=== PATIENT | female | born 1945 | race Caucasian/White ===

== ENCOUNTER 2017-10-06 12:53 | Outpatient (CLI) | payer MEDICARE, OTHER ==
--- NOTE | 2017-10-07 14:56 | DEXA Report ---
DEXA: 10/06/2017 CLINICAL INDICATION: Postmenopausal. TECHNIQUE: Dual energy x-ray absorptiometry (DXA) was performed on a [employer] system. Regions measured are the AP spine, femoral neck, and, if needed, forearm. COMPARISON: None. In accordance with the International Society for Clinical Densitometry (ISCD) guidelines, data from previous exams may be reanalyzed using current recommendations and techniques. This is done to allow a more accurate basis for comparison with the current study. FINDINGS The data for the lumbar spine is as follows: REGION BMD (g/cm/cm) T-SCORE Z-SCORE L1 1.222 0.8 1.3 L2 1.252 0.4 1.0 L3 1.320 1.0 1.5 L4 1.261 0.5 1.1 TOTAL 1.266 0.7 1.3 NOTE: All evaluable vertebrae are used for classification. The data for the hip is as follows: REGION BMD (g/cm/cm) T-SCORE Z-SCORE Neck 0.998 -0.3 0.7 TOTAL 1.067 0.5 1.2 NOTE: The femoral neck or total proximal femur, whichever is lowest, is used for classification. IMPRESSION THE WHO CLASSIFICATION BASED ON THE INTERNATIONAL REFERENCE STANDARD IS NORMAL. THE FRACTURE RISK IS INCREASED. RECOMMENDATION: Patients with diagnosis of osteoporosis or osteopenia should have regular bone mineral density assessment. For those eligible for Medicare, routine testing is allowed once every 2 years. Testing frequency can be increased for patients who have rapidly progressing disease or for those who are receiving medical therapy to restore bone mass. COMMENT: World Health Organization (WHO) definitions for osteoporosis and osteopenia: NORMAL BMD: T-score at 1.0 or higher, fracture risk is low. OSTEOPENIA BMD: T-score between 1.0 and -2.5, fracture risk is increased. OSTEOPOROSIS BMD: T-score at 2.5 or lower, fracture risk high. National Osteoporosis Foundation recommends: 1. Obtain adequate dietary calcium (at least 1200 mg per day) and vitamin D (400-800 international units per day). 2. Participate, as appropriate, in regular weightbearing and muscle-strengthening exercise. 3. Avoid tobacco use and reduce alcohol and caffeine intake. 4. For more detailed information see the website at www.NOF.org. TD: 10/06/2017 18:24
== END 2017-10-06 12:54 | disposition home or self-care (01) ==
LOC: DI 12:53
PROVIDERS: ATTEND Physician Assistant
DX: Z13.820 Encounter for screening for osteoporosis (principal); N95.8 Other specified menopausal and perimenopausal disorders
CPT/HCPCS: 77080

== ENCOUNTER 2018-03-01 11:42 | Outpatient (CLI) | payer MEDICARE, OTHER ==
--- NOTE | 2018-03-14 11:29 | Mammography Report ---
Procedure Date: 03/01/2018 Accession Number: [id number] / [id number] Procedure: MGN - Screening Mammo Dig w/Implants CPT Code: FULL RESULT: EXAM: Screening Mammo Dig w/Implants DATE: 03/01/2018 12:13 PM CLINICAL HISTORY: 72-year-old female with history of right breast cancer status post surgery, radiation, chemotherapy. TECHNIQUE: Bilateral CC and MLO views were obtained. Bilateral CC and MLO implant displaced views were also obtained. COMPARISON: None FINDINGS: The breasts demonstrate diffuse fatty replacement bilaterally. There are bilateral breast implants, saline. Postsurgical changes are seen in the right breast. Typically benign coarse calcifications are noted. No suspicious masses, clustered microcalcifications, or regions of architectural distortion are identified. IMPRESSION: Benign findings RECOMMENDATION: Routine annual screening unless otherwise clinically indicated. BIRADS CATEGORY 2: Benign findings STANDARD QUALIFYING STATEMENTS: 1. This examination was reviewed with the aid of Computer-Aided Detection (CAD). 2. A negative or benign imaging report should not delay biopsy if clinically suspicious findings are present. Consider surgical consultation if warrented. More than 5% of cancers are not identified by imaging. 3. Dense breasts may obscure an underlying neoplasm.
== END 2018-03-01 11:43 | disposition home or self-care (01) ==
LOC: DI.N 11:42
PROVIDERS: ATTEND Physician Assistant
DX: Z12.31 Encounter for screening mammogram for malignant neoplasm of breast (principal); Z85.3 Personal history of malignant neoplasm of breast; Z98.82 Breast implant status
CPT/HCPCS: 77067

== ENCOUNTER 2018-10-13 15:46 | Emergency (ER) | payer MEDICARE, OTHER ==
[2018-10-13] MEDS ORDERED: SODIUM CHLORIDE 0.9% 1,000 ML IV STA (16:13)
[2018-10-13 17:33] LABS: BILIRUBIN,URINE NEGATIVE (NEGATIVE); GLUCOSE, URINE (UA) NEGATIVE (NEGATIVE); KETONES,URINE (UA) NEGATIVE (NEGATIVE); LEUKOCYTE ESTERASE, URINE TRACE (NEGATIVE); NITRITE,URINE NEGATIVE (NEGATIVE); OCCULT BLOOD,URINE NEGATIVE (NEGATIVE); PROTEIN,URINE 30 mg/dL (NEGATIVE); UROBILINOGEN,URINE 0.2 (NORMAL) E.U./dL (NORMAL)
[2018-10-13 17:37] LABS: CLARITY,URINE CLEAR (CLEAR)
[2018-10-13 17:38] LABS: BACTERIA,URINE None Seen /HPF (None Seen); RBC,URINE None Seen /HPF (0-5); SQUAMOUS EPITHELIAL CELL,UR MOD Squamous (<= Few)
[2018-10-13 18:45] LABS: BASOPHILS # (AUTO) 0.1 10^3/uL (0.0-0.1); BASOPHILS % (AUTO) 0.6 %; EOSINOPHILS # (AUTO) 0.1 10^3/uL (0.0-0.7); HGB - HEMOGLOBIN 9.4 g/dL (12.0-16.0); LYMPHOCYTES # (AUTO) 1.7 10^3/uL (1.5-3.5); LYMPHOCYTES % (AUTO) 13.8 %; MEAN CORPUSCULAR HEMOGLOBIN 28.1 pg (27.0-31.0); MEAN CORPUSCULAR HGB CONC 32.6 g/dL (32.0-36.0); MEAN CORPUSCULAR VOLUME 86.1 fL (81.0-99.0); MEAN PLATELET VOLUME 6.6 fL (7.9-10.8); MONOCYTES # (AUTO) 0.8 10^3/uL (0.0-1.0); MONOCYTES % (AUTO) 6.8 %; NEUTROPHILS # (AUTO) 9.6 10^3/uL (1.5-6.6); NEUTROPHILS % (AUTO) 77.8 %; PLT - PLATELET COUNT 411 10^3/uL (130-450); RED BLOOD COUNT 3.34 10^6/uL (4.20-5.40); RED CELL DISTRIBUTION WIDTH 14.4 % (12.0-15.0); WHITE BLOOD COUNT 12.3 x10^3/uL (4.8-10.8)
[2018-10-13 19:05] LABS: ALBUMIN 2.2 g/dL (3.2-5.5); ALBUMIN/GLOBULIN RATIO 0.6 (1.0-2.2); BILIRUBIN,TOTAL 0.5 mg/dL (0.2-1.0); CALCIUM 7.4 mg/dL (8.5-10.3); CREATININE 0.5 mg/dL (0.4-1.0); TOTAL PROTEIN 6.2 g/dL (6.7-8.2)
[2018-10-13] MEDS ORDERED: POTASSIUM BICARB 25 MEQ TABLET PO STA (19:37)
[2018-10-13] MEDS ORDERED: IOPAMIDOL-300 100 ML VIAL ONE (20:04)
[2018-10-13] MEDS ORDERED: IOPAMIDOL-300 100 ML VIAL IVP ONE (20:36)
--- NOTE | 2018-10-13 20:39 | ED Physician Documentation ---
History of Present Illness - Stated complaint Stated Complaint: FEVER/DIARRHEA - Chief complaint Chief Complaint: General - History obtained from History obtained from: Patient - History of Present Illness Timing: How many weeks ago (3) Pain level max: 4 Pain level now: 3 Improved by: nothing Worsened by: eating - Additonal information Additional information: 73-year-old female is 3 weeks status post a total abdominal hysterectomy. She states that she has had diarrhea since the hysterectomy and this is been an ongoing issue. Is also having body aches and fevers. Has seen her surgeon, but no tests run. No vomiting. Review of Systems Constitutional: denies: Fever, Chills Nose: denies: Rhinorrhea / runny nose, Congestion Throat: denies: Sore throat Respiratory: denies: Cough : denies: Dysuria Skin: denies: Rash Musculoskeletal: denies: Neck pain, Back pain Neurologic: denies: Headache PD PAST MEDICAL HISTORY - Past Medical History Past Medical History: Yes Other Past Medical History: uterine CA, colon CA, breast CA - Past Surgical History Past Surgical History: Yes General: Cholecystectomy, Appendectomy - Allergies Allergies/Adverse Reactions: Allergies Allergy/AdvReac Type Severity Reaction Status Date / Time No Known Drug Allergies Allergy Verified 10/13/18 15:52 - Social History Does the pt smoke?: No Smoking Status: Never smoker Does the pt drink ETOH?: No Does the pt have substance abuse?: No - Immunizations Immunizations are current?: Yes PD ED PE NORMAL - Vitals Vital signs reviewed: Yes - General General: Alert and oriented X 3, No acute distress - HEENT HEENT: Moist mucous membranes - Neck Neck: Supple, no meningeal sign - Cardiac Cardiac: RRR, Strong equal pulses - Respiratory Respiratory: No respiratory distress, Clear bilaterally - Abdomen Abdomen: Soft, Non tender, Non distended, Other (Mild dehiscence of her surgical site. No drainage) - Back Back: No spinal TTP - Derm Derm: Warm and dry - Neuro Neuro: Alert and oriented X 3 - Psych Psych: Normal mood, Normal affect Results - Vitals Vitals: Vital Signs - 24 hr 10/13/18 10/13/18 10/13/18 15:53 17:20 18:52 Temperature 37.9 C H Heart Rate 122 H 98 108 H Respiratory 18 16 15 Rate Blood Pressure 141/86 H 141/84 H 147/87 H O2 Saturation 94 95 97 03/08/19 20:55 Temperature 37.4 C Heart Rate 104 H Respiratory 16 Rate Blood Pressure 149/87 H O2 Saturation 98 Oxygen O2 Source Room air - Labs Labs: Laboratory Tests 10/13/18 10/13/18 10/13/18 17:29 18:36 18:40 WBC 12.3 H RBC 3.34 L Hgb 9.4 L Hct 28.8 L MCV 86.1 MCH 28.1 MCHC 32.6 RDW 14.4 Plt Count 411 MPV 6.6 L Neut # (Auto) 9.6 H Lymph # (Auto) 1.7 Haakon # (Auto) 0.8 Eos # (Auto) 0.1 Baso # (Auto) 0.1 Absolute Nucleated RBC 0.00 Nucleated RBC % 0.0 Sodium 137 Potassium 2.6 L Chloride 98 L Carbon Dioxide 27 Anion Gap 12.0 BUN 11 Creatinine 0.5 Estimated GFR (MDRD) 121 Glucose 153 H Calcium 7.4 L Total Bilirubin 0.5 AST 25 ALT 22 Alkaline Phosphatase 76 Total Protein 6.2 L Albumin 2.2 L Globulin 4.0 Albumin/Globulin Ratio 0.6 L Lipase 26 Urine Color YELLOW Urine Clarity CLEAR Urine pH 6.0 Ur Specific [place] 1.025 Urine Protein 30 H Urine Glucose (UA) NEGATIVE Urine Ketones NEGATIVE Urine Occult Blood NEGATIVE Urine Nitrite NEGATIVE Urine Bilirubin NEGATIVE Urine Urobilinogen 0.2 (NORMAL) Ur Leukocyte Esterase TRACE H Urine RBC None Seen Urine WBC 0-3 Ur Squamous Epith Cells MOD Squamous H Urine Bacteria None Seen Ur Microscopic Review INDICATED Urine Culture Comments NOT INDICATED - Rads (name of study) CT abdomen pelvis Radiology: Prelim report reviewed, EMP read contemporaneously, See rad report (Small volume scattered free fluid in the abdomen and pelvis. 2. Relatively small approximately 3 x 5 x 22 cm left retroperitoneal fluid collection from the mid abdomen through the mid pelvis as described above which is of uncertain significance, possibly a lymphocele. 3. Minimal fluid and gas at the infraumbilical midline laparotomy scar. ) PD MEDICAL DECISION MAKING - ED course Complexity details: reviewed results, re-evaluated patient, considered differential, d/w patient ED course: 73-year-old female with diarrhea for the past 3 weeks. No diarrhea while in the emergency department for over 6 hours. No acute findings on CT. She was hypokalemic and this was replaced. Also given IV fluids. Feels better. We will have her follow-up with her doctor for stool testing. Abdomen is soft, nontender nondistended. Patient is well-appearing, nontoxic. Patient counseled regarding signs and symptoms for which I believe and urgent re-evaluation would be necessary. Patient with good understanding of and agreement to plan and is comfortable going home at this time This document was made in part using voice recognition software. While efforts are made to proofread this document, sound alike and grammatical errors may occur. Departure - Departure Disposition: 01 Home, Self Care Clinical Impression: Hypokalemia Diarrhea Qualifiers: Diarrhea type: unspecified type Qualified Code(s): R19.7 - Diarrhea, unspecified Condition: Good Instructions: ED Diet Vomiting Diarrhea, ED Potassium Deficiency Follow-Up: Freedom Lou MD [Primary Care Provider] - Within 3 Days Comments: Follow-up with Dr. Lou for a repeat potassium and a stool culture. Return if you worsen. Discharge Date/Time: 10/13/18 21:29
[2018-10-13 20:56] VITALS: BP 149/87
--- NOTE | 2018-10-13 21:04 | CT Report ---
Reason: abd pain s/p hysterectomy 3 weeks ago Procedure Date: 10/13/2018 Accession Number: [id number] / [id number] Procedure: CT - Abdomen/Pelvis W CPT Code: FULL RESULT: EXAM: CT ABDOMEN AND PELVIS EXAM DATE: 10/13/2018 08:34 PM. CLINICAL HISTORY: Abd pain s/p hysterectomy 3 weeks ago for uterine cancer. COMPARISONS: None. TECHNIQUE: Routine helical CT imaging was performed through the abdomen and pelvis. IV contrast: 100 ML ISOVUE 300. Enteric contrast: No. Reconstructions: Coronal and sagittal. In accordance with CT protocol optimization, one or more of the following dose reduction techniques were utilized for this exam: automated exposure control, adjustment of mA and/or KV based on patient size, or use of iterative reconstructive technique. FINDINGS: Lung Bases: Unremarkable. Liver: Tiny hypodensity in the lateral left lobe adjacent to the fissure for the ligamentum teres probably representing minimal focal fatty infiltration. Otherwise normal. Gallbladder/Bile Ducts: Gallbladder surgically absent. No ductal dilatation. Spleen: Normal. Pancreas: Normal. Adrenal Glands: Normal. Kidneys: Normal. No masses or hydronephrosis. Peritoneal Cavity/Bowel: Unopacified stomach and small bowel are unremarkable. The appendix is not clearly identified. There is minimal formed stool in the colon. There is a rectal anastomotic staple line. There is no focal pericolonic fat stranding. There is small volume dependent free fluid in the pelvis. There is minimal fluid near the inferior right hepatic lobe and in the upper right paracolic gutter. There is a small amount of fluid in the mid left paracolic gutter. No loculated or rim-enhancing fluid collection is identified. No pneumoperitoneum. Retroperitoneum: No lymphadenopathy. There is an elongated hypodense fluid collection in the left retroperitoneum posterior to the posterior pararenal fascia starting at the level of the mid kidney and extending inferiorly in the extraperitoneal space anterior to the iliac wing and terminating anterior to the external iliac vessels measuring approximately 3 x 5 x 22 cm. Pelvic Organs: Bladder normal in size and contour. There is a small amount of fluid pooling in the anterior vagina. The vaginal cuff is unremarkable. The uterus is surgically absent. No adnexal mass is identified. Vasculature: Minimal aortoiliac atherosclerotic calcification without abnormal dilation. Iliac arteries and veins enhance normally. Bones: Flowing osteophyte formation anteriorly in the lower thoracic spine consistent with diffuse idiopathic skeletal hyperostosis. Mild bilateral L3-L4, moderate bilateral L4-L5 and L5-S1 facet osteoarthritis. Mild degenerative sclerosis of the bilateral sacroiliac joints and the pubic symphysis. Other: Bilateral breast implants. Mild generalized body wall edema. Scattered bubbles of subcutaneous gas in the mid anterior abdominal wall bilaterally suggesting sites of medication injection. Minimal fluid and gas along the immediate infraumbilical portion of the midline laparotomy scar. IMPRESSION: 1. Small volume scattered free fluid in the abdomen and pelvis. 2. Relatively small approximately 3 x 5 x 22 cm left retroperitoneal fluid collection from the mid abdomen through the mid pelvis as described above which is of uncertain significance, possibly a lymphocele. 3. Minimal fluid and gas at the infraumbilical midline laparotomy scar. RADIA
== END 2018-10-13 21:29 | disposition home or self-care (01) ==
LOC: ED 15:46
DX: E87.6 Hypokalemia (principal); R19.7 Diarrhea, unspecified; Z90.710 Acquired absence of both cervix and uterus
CPT/HCPCS: 36415; 74177; 80053; 81001; 83690; 85025; 96360; 96361; 99283; A9270; Q9967; 81003; 87086

== ENCOUNTER 2018-10-21 12:05 | Outpatient (CLI) | payer MEDICARE, OTHER ==
--- NOTE | 2018-10-23 04:57 | XRAY Report ---
Reason: CLAVICLE,FX Procedure Date: 10/21/2018 Accession Number: [id number] / [id number] Procedure: XR - Clavicle RT CPT Code: FULL RESULT: EXAM: RIGHT CLAVICLE RADIOGRAPHY EXAM DATE: 10/21/2018 12:59 PM. CLINICAL HISTORY: Fall, right clavicle pain. COMPARISON: None. TECHNIQUE: 2 views. FINDINGS: Bones: No clavicle fracture seen. Joints: The acromioclavicular and sternoclavicular joints are normally aligned. Minimal degenerative changes in the acromioclavicular joint. Soft Tissues: Normal. No soft tissue swelling. IMPRESSION: Negative right clavicle. RADIA
== END 2018-10-21 12:06 | disposition home or self-care (01) ==
LOC: DI 12:05
PROVIDERS: ATTEND Specialist
DX: M19.011 Primary osteoarthritis, right shoulder (principal)

== ENCOUNTER 2019-05-23 09:24 | Outpatient (CLI) | payer MEDICARE, OTHER | END 2019-05-23 09:25 | disposition home or self-care (01) | LOC: DI.N 09:24 | DX: Z53.9 Procedure and treatment not carried out, unspecified reason (principal) ==

== ENCOUNTER 2019-06-14 13:50 | Outpatient (CLI) | payer MEDICARE, OTHER ==
--- NOTE | 2019-06-14 15:51 | Mammography Report ---
Reason: RT BREAST LUMP, HX BREAST CA Procedure Date: 06/14/2019 Accession Number: [id number] / [id number] Procedure: ABRAM - Diagnostic Dig Bilat CPT Code: Final Report FULL RESULT: EXAM: Diagnostic Dig Bilat DATE: 06/14/2019 3:08 PM CLINICAL HISTORY: Diagnostic examination. Personal history of breast cancer, colon cancer and endometrial cancer. Right breast lumpectomy in 1996. TECHNIQUE: (B) - Bilateral CC and MLO views were obtained. Views were obtained in implant displaced and standard fashion with additional right MLO implant displaced views obtained. COMPARISON: 03/01/2018. PARENCHYMAL PATTERN: (F) - The breast(s) demonstrate(s) diffuse fatty replacement. FINDINGS: Right breast lumpectomy changes demonstrate no concerning interval change, typically benign. Intact-appearing retropectoral type bilateral saline type breast implants are noted. There are no suspicious masses, calcifications, or areas of distortion. IMPRESSION: Benign findings. BI-RADS category 2. RECOMMENDATION: (ANNUAL) - Recommend routine annual screening mammography. BI-RADS CATEGORY: (2) - Benign Findings. STANDARD QUALIFYING STATEMENTS: 1. This examination was not reviewed with the aid of Computer-Aided Detection (CAD). 2. A negative or benign imaging report should not preclude biopsy if clinically suspicious findings are present. 3. Dense breasts may obscure an underlying neoplasm. 4. This examination was reviewed with the aid of 3D breast imaging (tomosynthesis).
== END 2019-06-14 13:51 | disposition home or self-care (01) ==
LOC: DI 13:50
PROVIDERS: ATTEND Internal Medicine
DX: N63.10 Unspecified lump in the right breast, unspecified quadrant (principal); Z85.3 Personal history of malignant neoplasm of breast
CPT/HCPCS: 77066

== ENCOUNTER 2020-01-09 10:24 | Outpatient (CLI) | payer MEDICARE, OTHER ==
--- NOTE | 2020-01-09 12:35 | XRAY Report ---
Reason: INFLAMMAITON OF R MCPJ TYPICAF OA Procedure Date: 01/09/2020 Accession Number: [id number] / [id number] Procedure: XR - Hand 3 View BILAT CPT Code: Final Report FULL RESULT: PROCEDURE: Hand 3 View BILAT INDICATIONS: INFLAMMAITON OF R MCPJ TYPICAF OA TECHNIQUE: 3 views of the hand(s) acquired. COMPARISON: None FINDINGS: Bones: Joint space narrowing, subchondral sclerosis and marginal osteophyte formation is noted in right third MCP joint with underlying subcortical radiolucencies concerning for erosion secondary to inflammatory arthropathy. Osteoarthritic changes are noted involving first through fifth interphalangeal joints as well as first, second and fifth MCP joints. Subtle erosion is also likely present involving radial aspect of right second metacarpal head. Osteophytic changes also seen throughout left wrist and hand joints with features suggestive of erosive osteoarthritis in left second and third distal interphalangeal joints. Subtle radiolucency involving dorsal aspect of left first metacarpal head is seen, concerning for erosion secondary to inflammatory arthropathy. No fractures or dislocations. No suspicious bony lesions. Soft tissues: No suspicious soft tissue calcifications. Soft tissue swelling around third MCP joint is seen. IMPRESSION: 1. Osteoarthritic changes throughout bilateral hands and wrists. Features in left second and fourth distal interphalangeal joints are suggestive of erosive osteoarthritis. No gross fracture or dislocation. 2. There are erosive changes seen involving right third metacarpal head and possibly right second metacarpal head and left first metacarpal head concerning for changes secondary to inflammatory arthropathy. Soft tissue swelling over third metacarpal head. Reviewed by: Martínez Hernandez MD on 01/09/2020 12:34 PM PDT Approved by: Martínez Hernandez MD on 01/09/2020 12:34 PM PDT Station ID: [id number]
== END 2020-01-09 10:25 | disposition home or self-care (01) ==
LOC: DI 10:24
PROVIDERS: ATTEND Internal Medicine
DX: M19.041 Primary osteoarthritis, right hand (principal); M19.042 Primary osteoarthritis, left hand; M19.031 Primary osteoarthritis, right wrist; M19.032 Primary osteoarthritis, left wrist

== ENCOUNTER 2020-08-26 13:00 | Outpatient (CLI) | payer MEDICARE, OTHER ==
--- NOTE | 2020-08-26 16:01 | XRAY Report ---
PROCEDURE: Foot 3 View RT INDICATIONS: M79.671 TECHNIQUE: 3 views of the foot were acquired. COMPARISON: None FINDINGS: Bones: No acute fractures or dislocations. No suspicious bony lesions. There is hallux valgus angul ation of the right great toe with moderate osteoarthritic changes at the first metatarsophalangeal erasto int. There are also prominent plantar calcaneal and retrocalcaneal spurs. Soft tissues: No tibiotalar joint effusion. Achilles tendon appears normal. IMPRESSION: 1. Right foot without acute osseous abnormalities or dislocation. 2. Moderate degenerative changes of the right first metatarsophalangeal joint with hallux valgus angu lation at the first MTP joint. 3. Prominent retrocalcaneal and plantar calcaneal spurring. If there is continued clinical concern for pathology or occult fracture, consider follow-up imaging w ith repeat radiographs in 10-14 days and possible advanced imaging (CT, MRI, bone scan) if symptoms p ersist. Reviewed by: Jean Aguilera MD on 08/26/2020 3:59 PM PST Approved by: Jean Aguilera MD on 08/26/2020 3:59 PM PST Station ID: [id number]
== END 2020-08-26 13:01 | disposition home or self-care (01) ==
LOC: DI.N 13:00
PROVIDERS: ATTEND Physician Assistant
DX: M19.071 Primary osteoarthritis, right ankle and foot (principal); M20.11 Hallux valgus (acquired), right foot; M77.31 Calcaneal spur, right foot

== ENCOUNTER 2021-04-22 13:26 | Outpatient (CLI) | payer MEDICARE, OTHER ==
--- NOTE | 2021-04-23 08:41 | Mammography Report ---
BILATERAL DIGITAL SCREENING MAMMOGRAM 3D/2D WITH AUGMENTATION: 04/22/2021 CLINICAL: Routine screening. Personal history of right breast cancer. Comparison is made to exams dated: 06/14/2019 mammogram and 03/01/2018 mammogram - [facility]. The tissue of both breasts is predominantly fatty. Bilateral breast implants are intact. There are benign post operative findings in the right breast. No significant masses, calcifications, or other findings are seen in either breast. There has been no significant interval change. IMPRESSION: BENIGN There is no mammographic evidence of malignancy. A 1 year screening mammogram is recommended. This exam was interpreted at Station ID: [id number]. NOTE: For mammograms, a report in lay terms will be sent to the patient. Approximately 15% of breast malignancies will not be visualized mammographically. In the management of a palpable breast mass, a negative mammogram must not discourage biopsy of a clinically suspicious lesion. Electronically Signed By: Malvin Sanchez acr/penrad:04/22/2021 19:21:37 ACR BI-RADS Category 2: Benign Finding(s) 3342F PARENCHYMAL PATTERN: (F) - The breast(s) demonstrate(s) diffuse fatty replacement. BI-RADS CATEGORY: (2) - 2 RECOMMENDATION: (ANNUAL) - Recommend routine annual screening mammography. [id number] 1 year screening LATERALITY: (B)
== END 2021-04-22 13:27 | disposition home or self-care (01) ==
LOC: DI 13:26
DX: Z12.31 Encounter for screening mammogram for malignant neoplasm of breast (principal); Z85.3 Personal history of malignant neoplasm of breast

== ENCOUNTER 2022-10-19 14:41 | Outpatient (CLI) | payer MEDICARE, OTHER ==
--- NOTE | 2022-10-21 10:22 | Mammography Report ---
BILATERAL DIGITAL SCREENING MAMMOGRAM 3D/2D WITH AUGMENTATION: 10/19/2022 CLINICAL: Routine screening. Personal history of right breast cancer. Comparison is made to exams dated: 04/22/2021 mammogram, 06/14/2019 mammogram, and [facility] Both breasts are almost entirely fatty (category a/<25% glandular tissue). Bilateral breast implants are intact. There are benign post operative findings in the right breast. No significant masses, calcifications, or other findings are seen in either breast. There has been no significant interval change. IMPRESSION: BENIGN There is no mammographic evidence of malignancy. A 1 year screening mammogram is recommended. This exam was interpreted at Station ID: [id number]. NOTE: For mammograms, a report in lay terms will be sent to the patient. Approximately 15% of breast malignancies will not be visualized mammographically. In the management of a palpable breast mass, a negative mammogram must not discourage biopsy of a clinically suspicious lesion. Electronically Signed By: Issac paz/penrad:10/20/2022 10:41:03 letter sent: No_Letter ACR BI-RADS Category 2: Benign Finding(s) 3342F PARENCHYMAL PATTERN: (F) - The breast(s) demonstrate(s) diffuse fatty replacement. BI-RADS CATEGORY: (2) - 2 Mammogram [id number] 1 year screening LATERALITY: (B)
== END 2022-10-19 14:42 | disposition home or self-care (01) ==
LOC: DI.N 14:41
DX: Z12.31 Encounter for screening mammogram for malignant neoplasm of breast (principal); Z85.3 Personal history of malignant neoplasm of breast; Z98.82 Breast implant status

== ENCOUNTER 2023-03-07 10:10 | Outpatient (CLI) | payer MEDICARE, OTHER ==
--- NOTE | 2023-03-08 08:20 | XRAY Report ---
PROCEDURE: Ankle 3 View LT INDICATIONS: LT ANKLE PX TECHNIQUE: 3 views of the ankle were acquired. COMPARISON: None. FINDINGS: Bones: No fractures or dislocations. Ankle mortise is normally aligned. No suspicious bony lesions . Corticated ossicle adjacent to the medial malleolus is likely sequelae of old injury. Mild osteoart hritic changes in ankle joints. Calcaneal spurring. Soft tissues: No tibiotalar joint effusion. Distal Achilles tendon calcification at the calcaneal i nsertion consistent with enthesopathy. IMPRESSION: 1. No acute bony abnormality. 2. Mild osteoarthritis. 3. Calcaneal spurring. 4. Achilles tendon enthesopathy. Reviewed by: Anna Fair MD on 03/08/2023 8:19 AM PDT Approved by: Anna Fair MD on 03/08/2023 8:19 AM PDT Station ID: [id number]
== END 2023-03-07 10:11 | disposition home or self-care (01) ==
LOC: DI 10:10
PROVIDERS: ATTEND Internal Medicine
DX: M19.072 Primary osteoarthritis, left ankle and foot (principal); M77.32 Calcaneal spur, left foot; M76.892 Other specified enthesopathies of left lower limb, excluding foot

== ENCOUNTER 2023-05-26 07:42 | Day surgery (SDC) | payer MEDICARE, OTHER ==
[2023-05-26] MEDS ORDERED: LACTATED RINGERS 1,000 ML IV ONE (08:00)
[2023-05-26] MEDS ORDERED: PHENYLEPHRINE 2.5% OPHTH 2 ML DROPS ONE (08:01)
[2023-05-26] MEDS ORDERED: KETOROLAC 0.45% OPHTH DROPS ONE (08:01)
[2023-05-26] MEDS ORDERED: PROPARACAINE 0.5% OPHTH DROPS 15 ML ONE (08:02)
[2023-05-26] MEDS ORDERED: CYCLOPENTOLATE 1% OPHTH DROPS 2 ML ONE (08:02)
--- NOTE | 2023-05-26 08:13 | ANESTHESIA ---
Pre-Anesthesia VS, & Labs - Diagnosis L senile combined cataract - Procedure extraction L cataract w IOL Vital Signs: Temp Pulse Resp BP Pulse Ox O2 Flow Rate 36.2 C L 58 L 17 119/69 94 05/26/23 08:00 05/26/23 08:00 05/26/23 08:00 05/26/23 08:00 05/26/23 08:00 Height: 5 ft 8 in - NPO >8 hours - Is Patient ?: No - Lab Results Lab results reviewed: Yes Home Medications and Allergies Levothyroxine [Synthroid] 100 mcg PO QDAC 11/07/18 Omeprazole 10 mg PO DAILY 11/07/18 Zolpidem Tartrate [Edluar] 10 mg ORAL DAILY 11/07/18 Nabumetone 500 mg PO DAILY 12/12/18 Gabapentin 300 mg PO TID 12/26/18 Ferrous Sulfate 325 mg PO DAILY 01/05/19 Dicyclomine [Bentyl] 1 cap PO TID PRN 01/10/19 Allergies/Adverse Reactions: Allergies Allergy/AdvReac Type Severity Reaction Status Date / Time adhesive tape AdvReac Unknown Verified 05/26/23 08:14 Anes History & Medical History - Anesthetic History Anesthesia Complications: reports: No previous complications Family history of Anesthesia Complications: Denies Family history of Malignant Hyperthermia: Denies - Medical History Cardiovascular: reports: None Pulmonary: reports: None Gastrointestinal: reports: GERD Urinary: reports: None Neuro: reports: None Musculoskeletal: reports: Rheumatoid arthritis Endocrine/Autoimmune: reports: HyPOthyroidism Blood Disorders: reports: None Skin: reports: None Smoking Status: Never smoker - Surgical History General: reports: Cholecystectomy, Appendectomy, Bowel surgery Gynecologic: reports: Breast implants, Other Exam General: Alert, Oriented x3, Cooperative Dental: WNL Mouth Opening: Greater than 4 Fingerbreadths Neck Mobility: Normal Mallampati classification: II Respiratory: Lungs clear, Normal breath sounds, No respiratory distress Cardiovascular: Regular rate Neurological: Normal speech Mental/Cognitive Status: Alert/Oriented X3, Normal for patient Cognitive Status: Within normal limits Plan Anesthesia Type: MAC Consent for Procedure(s) Verified and Reviewed: Yes Code Status: Attempt Resuscitation ASA classification: 2-Mild systemic disease Is this case an emergency?: No
[2023-05-26] MEDS ORDERED: MIDAZOLAM 2 MG/2 ML VIAL ONE (08:53)
[2023-05-26] MEDS ORDERED: TIMOLOL 0.5% OPHTH DROPS ONE (08:55)
[2023-05-26] MEDS ORDERED: BRIMONIDINE 0.2% OPHTH DROPS 5 ML ONE (08:55)
[2023-05-26] MEDS ORDERED: TRIAMCIN/MOXIFLOX OPHTHALMIC 0.6 ML VIAL IO ONE ×2 (08:55→09:12)
[2023-05-26] MEDS ORDERED: EPINEPHrine 1 MG/ML AMP ONE (08:55)
[2023-05-26] MEDS ORDERED: BSS/LIDOCAINE/EPINEPHRINE 1 ML VIAL ONE (08:56)
[2023-05-26] MEDS ORDERED: EPINEPHrine 1 MG/ML AMP IR ONE (09:11)
[2023-05-26] MEDS ORDERED: BRIMONIDINE 0.2% OPHTH DROPS 5 ML OPTH ONE (09:11)
[2023-05-26] MEDS ORDERED: VANCOMYCIN OPHTH (TOPICAL) 10 MG/ML SYRINGE TOP ONE (09:12)
[2023-05-26] MEDS ORDERED: BSS/LIDOCAINE/EPINEPHRINE 1 ML SYRINGE IO ONE (09:12)
[2023-05-26] MEDS ORDERED: PROPARACAINE 0.5% OPHTH DROPS 15 ML LEFTEYE ONE (09:12)
[2023-05-26] MEDS ORDERED: TIMOLOL 0.5% OPHTH DROPS OPTH ONE (09:12)
[2023-05-26] MEDS ORDERED: LACTATED RINGERS 700 ML IV ONE ×2 (09:22)
--- NOTE | 2023-05-26 09:29 | OPERATIVE REPORT ---
Operative Report - Other Other Information/Narrative: Date of Surgery: 05/26/23 Preop Dx: Visually significant cataract left eye. This was the first cataract surgery. Postop Dx: Same Procedure: Phacoemulsification with posterior chamber intraocular lens implant left eye Surgeon: Dr. Parker Wong Anesthesia: Monitored anesthesia care Complications: None Operative Indications: This is a 77-year-old F with progressive vision loss in the left eye due to 2+ nuclear sclerotic, 2-3+ cortical, and trace posterior subcapsular cataract. Best corrected visual acuity was 20/40 with glare to 20/125 vision in the left eye. Indications for surgery were: - Overall decrease in vision - Difficulty reading - Difficulty seeing words, closed captions, or game scores on TV - Difficulty seeing street signs - Difficulty driving in low light or at night - Difficulty driving at night because of headlights from other vehicles The patient was consented at length concerning the risks and benefits of cataract surgery after which the patient expressed a desire to proceed with surgery. Operative Procedure: The patient was taken into OR#3 and placed under monitored anesthesia care. A surgical time-out was conducted confirming correct patient, correct procedure, and correct surgical site. The patient was given topical anesthesia and then prepped and draped in the usual sterile fashion. The eye was entered at the 6 and 3 oclock positions. Intracameral Shugarcaine was injected into the anterior chamber followed by a dispersive viscoelastic. A continuous-tear curvilinear capsulorhexis was performed. The nucleus was hydrodissected and phacoemulsified. The cortex was evacuated using automated infusion and aspiration. A cohesive viscoelastic was injected into the capsular bag and a 15.0 diopter intraocular lens was inserted into the bag. Infusion and aspiration were used to evacuate the viscoelastic materials from the eye. The wounds were hydrated and the eye inflated to physiologic pressure using balanced salt solution. Approximately 0.25ml of a mixture of triamcinolone and moxifloxacin was injected trans-sclerally into the vitreous in the inferotemporal quadrant using a 30 gauge cannula. An additional 0.25ml of a mixture of triamcinolone and moxifloxacin was injected subconjunctivally in the superior quadrant for infection and inflammation prophylaxis. Wound integrity was checked with Weck-April sponges. The patient was taken from the operating room in good condition and given post-op instructions.
[2023-05-26 09:30] VITALS: O2SAT 98
--- NOTE | 2023-05-26 09:47 | ANESTHESIA POST OP EVALUATION ---
Anesthesia Post Eval - Post Anesthesia Eval Vitals: Last Vital Signs Temp 36.2 C L 05/26/23 09:22 Pulse 67 05/26/23 09:22 Resp 14 05/26/23 09:22 BP 127/76 05/26/23 09:22 Pulse Ox 98 05/26/23 09:22 O2 Flow Rate CV Function Including HR & BP: Stable Pain Control: Satisfactory Nausea & Vomiting: Negative Mental Status: Baseline Respiratory Status: Airway Patent Hydration Status: Satisfactory Anesthesia Complications: None
[2023-05-26 09:59] VITALS: BP 114/69
== END 2023-05-26 07:43 | disposition home or self-care (01) ==
LOC: SDS 07:42
PROVIDERS: ATTEND Ophthalmology
DX: H25.812 Combined forms of age-related cataract, left eye (principal); F41.9 Anxiety disorder, unspecified
CPT/HCPCS: 66984; A9270; J3490; J7120

== ENCOUNTER 2023-07-14 07:19 | Day surgery (SDC) | payer MEDICARE, OTHER ==
[~2023-07-14 07:19] MED LIST: CYCLOPENTOLATE 1% OPHTH DROPS 2 ML ONE; KETOROLAC 0.45% OPHTH DROPS ONE; PHENYLEPHRINE 2.5% OPHTH 2 ML DROPS ONE; PROPARACAINE 0.5% OPHTH DROPS 15 ML ONE
[2023-07-14] MEDS ORDERED: LACTATED RINGERS 1,000 ML IV ONE (07:51)
[2023-07-14] MEDS ORDERED: MIDAZOLAM 2 MG/2 ML VIAL ONE (08:06)
--- NOTE | 2023-07-14 08:07 | ANESTHESIA ---
Pre-Anesthesia VS, & Labs - Diagnosis right senile combined cataract - Procedure right cataract extraction with IOL implant Vital Signs: Temp Pulse Resp BP Pulse Ox O2 Flow Rate 35.5 C L 60 16 119/77 97 07/14/23 07:31 07/14/23 07:31 07/14/23 07:31 07/14/23 07:31 07/14/23 07:31 Height: 5 ft 10 in Weight (kg): 95 kg Body Mass Index: 30.0 BMI Classification: Obese - NPO >8 hours - Is Patient ?: No Home Medications and Allergies Levothyroxine [Synthroid] 100 mcg PO QDAC 11/07/18 Omeprazole 10 mg PO DAILY 11/07/18 Zolpidem Tartrate [Edluar] 10 mg ORAL DAILY 11/07/18 Nabumetone 500 mg PO DAILY PRN 12/12/18 Gabapentin 300 mg PO TID 12/26/18 Ferrous Sulfate 325 mg PO DAILY 01/05/19 Dicyclomine [Bentyl] 1 cap PO TID PRN 01/10/19 Allergies/Adverse Reactions: Allergies Allergy/AdvReac Type Severity Reaction Status Date / Time adhesive tape AdvReac Unknown Verified 07/13/23 12:55 Anes History & Medical History - Anesthetic History Anesthesia Complications: reports: No previous complications - Medical History Cardiovascular: reports: None Pulmonary: reports: None Gastrointestinal: reports: GERD, Cholelithiasis Urinary: reports: None Neuro: reports: None Musculoskeletal: reports: Rheumatoid arthritis Endocrine/Autoimmune: reports: HyPOthyroidism Blood Disorders: reports: None Skin: reports: None Smoking Status: Never smoker Psychosocial: reports: No issues indicated History of Cancer?: Yes (breast, colon, edometrial) - Surgical History General: reports: Cholecystectomy, Appendectomy, Bowel surgery, Colonoscopy Eyes Ears Nose Throat (EENT): reports: Cataracts Gynecologic: reports: Hysterectomy, Oophrectomy Exam General: Alert, Oriented x3, Cooperative, No acute distress Dental: WNL Mouth Openin Fingerbreadth Neck Mobility: Normal Mallampati classification: II Thyromental Distance: 4-6 cm Mental/Cognitive Status: Alert/Oriented X3, Normal for patient Plan Anesthesia Type: MAC Consent for Procedure(s) Verified and Reviewed: Yes Code Status: Attempt Resuscitation ASA classification: 2-Mild systemic disease Is this case an emergency?: No
[2023-07-14] MEDS ORDERED: BRIMONIDINE 0.2% OPHTH DROPS 5 ML ONE (08:21)
[2023-07-14] MEDS ORDERED: BSS/LIDOCAINE/EPINEPHRINE 1 ML VIAL ONE (08:21)
[2023-07-14] MEDS ORDERED: TIMOLOL 0.5% OPHTH DROPS ONE (08:21)
[2023-07-14] MEDS ORDERED: TRIAMCIN/MOXIFLOX OPHTHALMIC 0.6 ML VIAL IO ONE ×2 (08:22→08:44)
[2023-07-14] MEDS ORDERED: EPINEPHrine 1 MG/ML AMP ONE (08:22)
[2023-07-14] MEDS ORDERED: BRIMONIDINE 0.2% OPHTH DROPS 5 ML OPTH ONE (08:44)
[2023-07-14] MEDS ORDERED: TIMOLOL 0.5% OPHTH DROPS OPTH ONE (08:44)
[2023-07-14] MEDS ORDERED: EPINEPHrine 1 MG/ML AMP IR ONE (08:44)
[2023-07-14] MEDS ORDERED: BSS/LIDOCAINE/EPINEPHRINE 1 ML SYRINGE IO ONE (08:44)
[2023-07-14] MEDS ORDERED: PROPARACAINE 0.5% OPHTH DROPS 15 ML RIGHTEYE ONE (08:45)
[2023-07-14] MEDS ORDERED: VANCOMYCIN OPHTH (TOPICAL) 10 MG/ML SYRINGE TOP ONE (08:45)
[2023-07-14] MEDS ORDERED: LACTATED RINGERS 500 ML IV ONE (08:56)
--- NOTE | 2023-07-14 09:04 | OPERATIVE REPORT ---
Operative Report - Other Other Information/Narrative: Date of Surgery: 07/14/23 Preop Dx: Visually significant cataract right eye. Cataract surgery was performed in the left eye on . Postop Dx: Same Procedure: Phacoemulsification with posterior chamber intraocular lens implant right eye Surgeon: Dr. Parker Wong Anesthesia: Monitored anesthesia care Complications: None Operative Indications: This is a 78-year-old F with progressive vision loss in the right eye due to 2+ nuclear sclerotic and 2+ cortical cataract. Best corrected visual acuity was 20/30 with glare to 20/200 vision in the right eye. Indications for surgery were: - Overall decrease in vision - Difficulty seeing words on a computer screen - Difficulty reading - Difficulty seeing words, closed captions, or game scores on TV - Difficulty seeing street signs - Difficulty driving in low light or at night - Difficulty driving at night because of headlights from other vehicles - Difficulty with glare or bright lights in any situation The patient was consented at length concerning the risks and benefits of cataract surgery after which the patient expressed a desire to proceed with surgery. Operative Procedure: The patient was taken into OR#3 and placed under monitored anesthesia care. A surgical time-out was conducted confirming correct patient, correct procedure, and correct surgical site. The patient was given topical anesthesia and then prepped and draped in the usual sterile fashion. The eye was entered at the 6 and 3 oclock positions. Intracameral Shugarcaine was injected into the anterior chamber followed by a dispersive viscoelastic. A continuous-tear curvilinear capsulorhexis was performed. The nucleus was hydrodi ssected and phacoemulsified. The cortex was evacuated using automated infusion and aspiration. A cohesive viscoelastic was injected into the capsular bag and a 15.5 diopter intraocular lens was inserted into the bag. Infusion and aspiration were used to evacuate the viscoelastic materials from the eye. The wounds were hydrated and the eye inflated to physiologic pressure using balanced salt solution. Approximately 0.25ml of a mixture of triamcinolone and moxifloxacin was injected trans-sclerally into the vitreous in the inferotemporal quadrant using a 30 gauge cannula. An additional 0.25ml of a mixture of triamcinolone and moxifloxacin was injected subconjunctivally in the superior quadrant for infection and inflammation prophylaxis. Wound integrity was checked with Weck-April sponges. The patient was taken from the operating room in good condition and given post-op instructions.
--- NOTE | 2023-07-14 09:33 | ANESTHESIA POST OP EVALUATION ---
Anesthesia Post Eval - Post Anesthesia Eval Vitals: Last Vital Signs Temp 36.0 C L 07/14/23 09:30 Pulse 64 07/14/23 09:30 Resp 16 07/14/23 09:30 BP 119/60 07/14/23 09:30 Pulse Ox 97 07/14/23 09:30 O2 Flow Rate CV Function Including HR & BP: Stable Pain Control: Satisfactory Nausea & Vomiting: Negative Mental Status: Baseline Respiratory Status: Airway Patent Hydration Status: Satisfactory Anesthesia Complications: None
[2023-07-14 09:40] VITALS: BP 119/60; O2SAT 97
== END 2023-07-14 07:20 | disposition home or self-care (01) ==
LOC: SDS 07:19
PROVIDERS: ATTEND Ophthalmology
DX: H25.811 Combined forms of age-related cataract, right eye (principal)
CPT/HCPCS: 66984; A9270; J3490; J7120; V2787